=== PATIENT | male | born 1950 | race Caucasian/White ===

== ENCOUNTER → 2021-03-25 | Day surgery (SDC) | payer OTHER ==
[~2021-03-25] VITALS: Ht 177.8 cm; Wt 90.7 kg
[~2021-03-25] MED LIST: ASMANEX HFA13 G1 NASAL; CENTRUM SILVER1 EAC2 PO; GLUCOSAMINE CH1 EAC2 PO; LEVOTHYROXINE200 MC2 PO; MECLIZINE HCL25 M1 PO; NORCO5 PO; PROVIGIL 200 M200 MG PO; ZYRTEC10 M5 PO
--- NOTE | ~2021-03-25 | O ---
[facility] [place] [place] [address] OPERATIVE REPORT Name: ORIANA ORTIZ Room #: REG [facility].Roseanne.#: [id number] Admission: 03/25/21 Attend Phys: Prashant Lloyd MD Discharge: Date of : 50 Report #: [id number] THIS REPORT FOR: cc: Physician not on staff Physician not on staff Prashant Lloyd MD ~ DATE OF SERVICE: 03/25/2021 PREOPERATIVE DIAGNOSIS: Left knee medial and lateral meniscus tears. POSTOPERATIVE DIAGNOSES: 1. Left knee medial and lateral meniscus tears. 2. Pathologic medial plica. 3. 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 4. 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 PROCEDURES: 1. Left knee arthroscopy with partial medial and lateral meniscectomies. 2. Medial plica excision. SURGEON: Prashant Lloyd MD TOMATO GRADER: Mahnaz Borges PA-C ANESTHESIA: LMA. COMPLICATIONS: None. SPECIMENS: None. TOURNIQUET TIME: 20 minutes. ESTIMATED BLOOD LOSS: Minimal. CONDITION UPON LEAVING THE OR: Stable. INDICATIONS FOR PROCEDURE: The patient is a 70-year-old gentleman with tears of his medial and lateral meniscus of the left knee. This was confirmed with MRI scans. After discussion with him, he elected for left knee arthroscopy with partial medial and lateral meniscectomy with debridement as needed. DESCRIPTION OF PROCEDURE: Risks, benefits, alternatives, complications were discussed in detail with the patient including, but not limited to, risk of anesthesia; risk of damage to nerves, arteries, blood vessels; risk for infection or bleeding; risk for continued knee pain and need for reoperation. Informed consent was obtained from the patient. Left knee was appropriately [facility] [address] [place] [address] OPERATIVE REPORT Name: ORIANA ORTIZ Room #: REG [facility] Yasmani#: [id number] Admission: 03/25/21 Attend Phys: Prashant Lloyd MD Discharge: Date of : 50 Report #: [id number] marked in the preoperative holding area. IV Ancef was given for preoperative antibiotics. He was brought to the operating room and placed in supine position on the operating room table. LMA anesthesia was induced without complication. Tourniquet was placed on the left thigh. Left lower extremity was prepped and draped in normal sterile fashion. Timeout was performed properly identifying the patient and procedure as well as the instrumentation and implants. All in the operating room were in agreement. Left lower extremity was exsanguinated, tourniquet was inflated. Tourniquet time was 20 minutes. A standard anterolateral portal was established with 11 blade through the skin. Arthroscope was introduced into the patellofemoral compartment. Diagnostic arthroscopy was undertaken. Patellofemoral compartment was visualized and was found to have grade 3 chondromalacia of the trochlear groove. Medial gutter was visualized and found to have a thickened medial plica. Medial compartment was visualized and medial portal was established under arthroscopic visualization. Probe was introduced in the medial compartment. There was noted to be a complex tear of the posterior horn of the medial meniscus. This was smoothed back to a stable rim with an oscillating shaver. Notch was visualized and found to have an intact anterior cruciate ligament. Lateral compartment was visualized and found to have significant fraying and tearing with a flap tear of the posterior horn of the medial meniscus. This was trimmed back to a stable rim with an arthroscopic biter and smoothed back with a shaver. Of note, there was also grade 3 chondromalacia of the tibial plateau. Scope was placed back in the patellofemoral compartment. The medial plica was excised with an oscillating shaver. All fluid was drained from the knee. Knee was injected with 10 mL of 0.5% Marcaine. Incision was closed with 3-0 nylon. Soft dressing of Adaptic, 4 x 4, Webril, and Cory wrap were applied. The patient tolerated this procedure well and went to recovery room under care of Anesthesia postoperatively. By: [id number] Prashant Lloyd MD /thierry
[2021-03-25 13:54] VITALS: BP 134/77
[2021-03-25 15:47] VITALS: BP 134/77
== END | disposition home or self-care (01) ==
LOC: OR 10:13
PROVIDERS: ATTEND Orthopaedic Surgery
DX: S83.282A Other tear of lateral meniscus, current injury, left knee, initial encounter (principal); S83.232A Complex tear of medial meniscus, current injury, left knee, initial encounter; M94.262 Chondromalacia, left knee; G47.30 Sleep apnea, unspecified; E03.9 Hypothyroidism, unspecified; Z87.891 Personal history of nicotine dependence; Z79.899 Other long term (current) drug therapy; Z98.890 Other specified postprocedural states; Z20.822 Contact with and (suspected) exposure to COVID-19; X58.XXXA Exposure to other specified factors, initial encounter; Y93.89 Activity, other specified; Y92.89 Other specified places as the place of occurrence of the external cause; Y99.8 Other external cause status
CPT/HCPCS: 50010; 50101; 50405; 56526; 57103; 57180; 58577; 58589; 62110; 62900; 70005